=== PATIENT | male | born 1975 | race Caucasian/White ===

== ENCOUNTER 2018-07-09 13:07 | Emergency (ER) | payer OTHER ==
[2018-07-09 13:11] VITALS: BP 134/86; PULSE 100; RESP 19; TEMP 98; O2SAT 100
[2018-07-09] MEDS ORDERED: Tdap Vaccine 0.5 ml Vial (10-64 yrs) IM ONE ×2 (13:28→14:44)
--- NOTE | 2018-07-09 14:52 | ED PDOC ---
HPI: Skin/Bite Injury Time Seen by Provider: 07/09/18 13:15 Chief Complaint (Nursing): Abnormal Skin Integrity Chief Complaint (Provider): Right index finger laceration History Per: Patient History/Exam Limitations: no limitations Onset/Duration Of Symptoms: Days Current Symptoms Are (Timing): Still Present Quality Of Symptoms: Painful Severity: Mild Pain Scale Rating Of: 2 Additional Complaint(s): 42 yo male with no medical problems presents for evaluation of laceration on the right index finger. Unknown tetanus. Cut with knife at work. No bleeding on arrival. Called [facility] in [place]. No tetanus vaccine on file. Past Medical History Reviewed: Historical Data, Nursing Documentation, Vital Signs Vital Signs: Last Vital Signs Temp 98.0 F 07/09/18 13:09 Pulse 100 H 07/09/18 13:09 Resp 19 07/09/18 13:09 BP 134/86 07/09/18 13:09 Pulse Ox 100 07/09/18 13:09 - Medical History PMH: No Chronic Diseases - Surgical History Surgical History: No Surg Hx - Family History Family History: States: Unknown Family Hx - Living Arrangements Living Arrangements: With Family - Social History Current smoker - smoking cessation education provided: No - Immunization History Hx Tetanus Toxoid Vaccination: Yes Hx Influenza Vaccination: No Hx Pneumococcal Vaccination: No - Home Medications Home Medications: Ambulatory Orders Medication Instructions Recorded Ketoconazole 2% Cr [Nizoral] 1 appl TP BID #1 tube 01/15/16 Cephalexin [Keflex] 500 mg PO BID #14 capsule 07/09/18 - Allergies Allergies/Adverse Reactions: Allergies Allergy/AdvReac Type Severity Reaction Status Date / Time No Known Allergies Allergy Verified 01/15/16 16:33 Review of Systems ROS Statement: Except As Marked, All Systems Reviewed And Found Negative Constitutional: Negative for: Fever, Chills Skin: Positive for: Other Physical Exam - Reviewed Nursing Documentation Reviewed: Yes Vital Signs Reviewed: Yes - Physical Exam Appears: Positive for: Well, Non-toxic, No Acute Distress Head Exam: Positive for: ATRAUMATIC, NORMAL INSPECTION, NORMOCEPHALIC Skin: Positive for: Warm. Negative for: Normal Color (1.5 cm superficial laceration, no bleeding, distal most tip of the right index finger wihtout bleeding ) Eye Exam: Positive for: Normal appearance ENT: Positive for: Normal ENT Inspection Neck: Positive for: Normal Cardiovascular/Chest: Negative for: Bradycardia, Tachycardia Respiratory: Negative for: Accessory Muscle Use, Respiratory Distress Back: Positive for: Normal Inspection Extremity: Positive for: Normal ROM Neurologic/Psych: Positive for: Alert - ECG O2 Sat by Pulse Oximetry: 100 Medical Decision Making Medical Decision Making: Wound irrigated. Antibiotic ointment and dressing applied. Tetanus given. Disposition - Clinical Impression Clinical Impression: Finger laceration, Tetanus toxoid vaccination administered at current visit - Patient ED Disposition Is Patient to be Admitted: No Counseled Patient/Family Regarding: Diagnosis, Need For Followup, Rx Given - Disposition Referrals: [facility] [Outside] Disposition: Routine/Home Disposition Time: 15:10 Condition: GOOD Prescriptions: Cephalexin [Keflex] 500 mg PO BID #14 capsule Instructions: Wound Care (DC) Forms: [facility] ([place])
== END 2018-07-09 15:28 | disposition home or self-care (01) ==
LOC: H.ER 13:07
DX: S61.210A Laceration without foreign body of right index finger without damage to nail, initial encounter (principal); W26.0XXA Contact with knife, initial encounter; Y99.0 Civilian activity done for income or pay; Z23 Encounter for immunization